=== PATIENT | male | born 1955 ===

== ENCOUNTER → 2021-02-23 11:58 | Outpatient (CLI) | payer MEDICARE, SELFPAY ==
[2021-02-23 12:26] LABS: COVID19 -Nasal RAPID Negative (Negative)
== END ==
PROVIDERS: Visit Provider Physician Assistant
DX: Z20.822 Contact with and (suspected) exposure to COVID-19 (principal); J02.9 Acute pharyngitis, unspecified
CPT/HCPCS: 87635